=== PATIENT | male | born 1985 | race Caucasian/White ===

== ENCOUNTER 2020-05-05 08:59 | Emergency (ER) | payer BC, SELFPAY ==
[2020-05-05 09:02] VITALS: BP 146/66; PULSE 85; RESP 16; TEMP 36.6; O2SAT 95; BMI 31.9
--- NOTE | 2020-05-05 09:29 | ED.VIS.GEN ---
History of Present Illness Chief Complaint: Foreign Body Detail of Chief Complaint: Bug left ear Informant: Patient Onset: Yesterday Context: Sudden Onset Timing: Continuous Quality: Foreign body left ear Location: Left auditory canal Current Severity: Mild Maximum Severity: Moderate Worsened by: Bug in auditory canal Relieved by: Suffocated bug with vegetable oil last evening Associated Symptoms: None Narrative: Patient a 34-year-old male who states bug went into his left auditory canal last evening. He suffocated the bug using vegetable oil. [facility] sent him here to have it removed. Patient has no complaints presently. Prior similar symptoms: No Recent Illness/Hospitalization: No - Past Medical History (1) No significant past medical history Status: Acute Past Medical History - Allergies and Home Meds Allergies/Adverse Reactions: Allergies No Known Allergies Allergy (Verified 05/05/20 09:02) Primary Care Physician: Minnie Montague MD [Primary Care Provider] - As Needed Prior records reviewed: No Surgical History: no surgical history Lives: Spouse/ Significant Other Smoking Status: Never smoker Alcohol: Rare Drugs: None Review of Systems General: Denies: Chills, Fever ENT: Reports: Left ear pain. Denies: Right ear pain, Rhinorrhea, Sore throat Skin: Denies: Rash, Wounds Neurological: Denies: Headache Allergy: Denies: Uticaria, Swelling of the mouth, Swelling of the tongue Physical Exam Vital Signs/Narrative: Vital Signs Temp Pulse Resp BP Pulse Ox 05/05/20 09:02 98 F 85 16 146/66 H 95 Inital Vital Signs reviewed: Yes General: Well nourished, Well developed, No Acute Distress Head: Normocephalic, Atraumatic Eyes: Perrl, EOMI. Negative for: Pale conjunctiva, Scleral icterus ENT: Moist mucous membranes, No rhinorrhea, - - There appears to be cerumen versus vegetable oil left auditory canal and there is a bug. But appears to be adherent to the cerumen or vegetable oil. Neck: Supple, Nontender, No lymphadenopathy, No JVD Cardiovascular: Regular rate, Regular rhythm, No murmurs Respiratory: No distress, CTA bilaterally, Chest nontender Neurological: Alert, Oriented x3, Cranial nerves II-XII grossly intact, Normal Strength, Normal Sensation, Normal Gait Psychological: Normal affect, Normal Mood Diagnostic/Tx/Re-eval - Medical Decision Making Patient has a dog that is in the left auditory canal. Since there is concern is adherent to either vegetable oil or cerumen will have nurse instill Debrox and then irrigate the vegetable oil/cerumen and bug all at the same time. Patient was reassessed at 1042. There is slight erythema of the TM. Landmarks are otherwise noted. There is residual wax external auditory canal. The insect has been removed in total. ED Disposition - Plan for ED Patient: Disposition: Home or Assisted Living Diagnosis: Insect left ear Instructions: Foreign Object in the Ear or Nose Referrals: Minnie Montague MD [Primary Care Provider] - As Needed
[2020-05-05] MEDS: Carbamide Peroxide 15 ML Bottle 5 DRP OTIC (09:46)
--- NOTE | 2020-05-05 10:57 | ED.RN ---
DISCHARGE INSTRUCTIONS GIVEN TO AND REVIEWED WITH PATIENT, PATIENT DENIES QUESTIONS OR CONCERNS AND VOICES UNDERSTANDING OF DISCHARGE INSTRUCTIONS. PT AMBULATES OUT OF ROOM WITHOUT DIFFICULTY.
== END 2020-05-05 10:57 | disposition home or self-care (01) ==
PROVIDERS: Emergency Provider Emergency Medicine; PCP Family Medicine
DX: T16.2XXA Foreign body in left ear, initial encounter (principal); X58.XXXA Exposure to other specified factors, initial encounter; Y93.9 Activity, unspecified; Y92.9 Unspecified place or not applicable
CPT/HCPCS: 99283

== ENCOUNTER → 2021-05-28 | Outpatient (CLI) | payer BC, SELFPAY ==
[2021-05-28 17:09] LABS: Probe Check PASS; Specimen Processing Control PASS
== END | disposition home or self-care (01) ==
LOC: LABSPEC 15:22
PROVIDERS: PCP Family Medicine; Referring Provider Family Medicine; Visit Provider Family Medicine
DX: U07.1 COVID-19 (principal)
CPT/HCPCS: 87635; U0005; U0003

== ENCOUNTER → 2023-01-27 | Outpatient (CLI) | payer BC, SELFPAY ==
[2023-01-27 08:27] LABS: Absolute Lymphocyte Count 2.65 X10^3/uL (0.83-4.51); Absolute Neutrophil Count 4.3 X10^3/uL (2.0-7.7); Basophil# 0.07 X10^3/uL; Basophil% 0.9 % (0-1); Eosinophil# 0.24 X10^3/uL; Hematocrit 48.1 % (40-54); Hemoglobin 16.1 g/dL (13.0-16.5); Lymphocyte # 2.65 X10^3/ul (0.83-4.51); Lymphocyte % 33.5 % (19-41); Mean Corp Hgb Conc 33.5 g/dL (32-36); Mean Corpuscular Hgb 30.8 pg (27.0-32.0); Mean Corpuscular Volume 92.1 fL (80-94); Mean Platelet Vol. 10.1 fl (6.2-12.0); Monocyte# 0.64 X10^3/uL; Monocyte% 8.1 % (0-10); NRBC Flagged by Analyzer 0 % (0-5); Neutrophil # 4.27 X10^3/uL (2.7-7.7); Platelet Count 259 K/mm3 (150-450); RBC Distribution Width CV 12.1 % (11.6-14.6); RBC Distribution Width SD 41.3 fl (35.1-43.9); Red Blood Count 5.22 M/mm3 (4.6-6.2); White Blood Count 7.9 K/mm3 (4.4-11.0)
[2023-01-27 09:01] LABS: ALB/GLOB Ratio 1.1 RATIO (0.9-2.4); AST(SGOT) 26 U/L (15-37); Alanine Aminotransfer ALT/SGPT 58 U/L (16-61); Albumin, Serum 3.9 g/dL (3.2-5.0); Alkaline Phosphatase 72 U/L (45-117); Anion Gap 6 (5-15); BUN 14 mg/dL (7-18); BUN/Creat Ratio 15.1 RATIO (10-20); Chloride 104 mmol/L (98-107); Cholesterol 199 mg/dL (200); Creatinine, Serum 0.93 mg/dL (0.70-1.30); EST Glomerular Filtration Rate 96 mL/min (>60); Est Glom Filt Rate - Afr Amer 116 mL/min (>60); Globulin 3.6 g/dL (2.2-4.2); Glucose 93 mg/dL (74-106); High Density Lipoprotein 34 mg/dL; Protein, Total 7.5 g/dL (6.4-8.2); Sodium Level 137 mmol/L (136-145); Triglycerides 222 mg/dL; Very Low Density Lipoprotein 44 mg/dL (5-40)
== END | disposition home or self-care (01) ==
PROVIDERS: PCP Family Medicine; Referring Provider Family Medicine; Visit Provider Family Medicine
DX: Z00.00 Encounter for general adult medical examination without abnormal findings (principal); Z83.3 Family history of diabetes mellitus
CPT/HCPCS: 36415; 80053; 80061; 85025